=== PATIENT | female | born 1995 | race African-American/Black ===

== ENCOUNTER 2017-01-05 05:28 | Inpatient (IN) ==
[2017-01-05] MEDS ORDERED: CITRIC ACID/SODIUM CITRATE 30 ML UDCUP PO ONE (05:37)
[2017-01-05] MEDS ORDERED: FAMOTIDINE 20 MG/2 ML VIAL IV ONE (05:37)
[2017-01-05] MEDS ORDERED: cefOXitin 3,000 MG in SODIUM CHLORIDE 0.9% 100 ML IV ONE (05:40)
[2017-01-05 05:48] LABS: Basophils % 0.2 % (0.0-0.8); Eosinophils # 0.1 10*3/uL (0.0-0.87); Eosinophils % 1.4 % (0.00-10.9); Hematocrit 33.7 VOL% (35.7-47.0); Immature Granulocytes Absolute 0.17 #; Lymphocytes # 2.2 10*3/uL (1.4-4.0); Lymphocytes % 25.8 % (21.3-54.2); Mean Corpuscular HGB Conc 32.6 GM/DL (32-36); Mean Corpuscular Hemoglobin 25 PG (27-34); Mean Corpuscular Volume 77.1 FL (87-102); Mean Platelet Volume 10.3 FL (9.6-12.0); Monocytes # 0.6 10*3/uL (0.11-0.8); Monocytes % 7.1 % (1.7-12.7); Neutrophils # 5.3 10*3/uL (1.4-7.4); Neutrophils % 63.5 % (38.7-73.9); Platelet Count 207 T/CUMM (130-400); Red Blood Count 4.37 MC/CUMM (3.8-5.5); Red Cell Distribution Width 15.3 % (9.3-17.3); White Blood Count 8.4 T/CUMM (4-12)
[2017-01-05] MEDS ORDERED: LACTATED RINGERS 1,000 ML IV SCH (06:00)
[2017-01-05 06:10] LABS: Albumin 2.9 G/DL (3.4-5.0); Bilirubin,Total 0.6 MG/DL (0.2-1.0); Calcium 9.7 MG/DL (8.5-10.1); Osmolality,Calculated 271.7 MOS/KG (273-304); Potassium 3.8 MMOL/L (3.5-5.1); Total Protein 6.8 G/DL (6.4-8.3)
[2017-01-05] MEDS ORDERED: OXYTOCIN/LR 20 UNIT/1,000 ML BAG IV ONE ×2 (06:42→08:42)
--- NOTE | 2017-01-05 06:50 | OB/GYN History & Physical ---
History of Present Illness Chief complaint: Scheduled repeat section History of present illness: Ms. Lewis is a 21 year old female at 39 weeks who is here for scheduled repeat section. H/o section x 1 with general anesthesia secondary to spina bifida. Medical history is complicated by C HTN, Type 2 DM, asthma, and morbid obesity. She has been seen by MFM several times, had serial growth scans and twice weekly antetal testing which has been good. R/B/A to repeat section reviewed. Pt verbalized understanding and is willing to proceed. Home Medications Medication Instructions Recorded Confirmed Type Ferrous Sulfate 325 mg PO DAILY 06/22/16 01/01/17 History NIFEdipine [Nifedipine ER] 30 mg PO DAILY 06/22/16 01/01/17 History Insulin NPH [HumuLIN N] 12 unit SUBCUT AC SUPPER 11/27/16 01/01/17 History Insulin NPH [HumuLIN N] 42 units SUBCUT BIDAC 11/27/16 01/01/17 History Insulin Regular [HumuLIN R] 12 unit SUBCUT AC BREAKFAST 11/27/16 01/01/17 History Insulin Regular [HumuLIN R] 12 unit SUBCUT AC SUPPER 11/27/16 01/01/17 History Multivitamin () [ 1 tablet PO DAILY 12/22/16 01/01/17 History Vitamin] Allergies Allergy/AdvReac Type Severity Reaction Status Date / Time No Known Allergies Allergy Verified 01/01/17 11:32 Medical,Surgical,& Family Hx - Medical History Cardio: History of: Hypertension Neurology: No history of: Seizures Endocrine: History of: Diabetes Mellitus (IDDM) - Surgical History Reproductive Surgeries: Surgical HX of;: Section - Social History Smoking Status: Never smoker Frequency of Alcohol Use: None Type of Drug Use: None 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 - Constitutional Vitals: Vital Signs Temp Pulse Resp BP Pulse Ox 01/05/17 05:37 97.5 F L 89 18 168/86 100 General appearance: no acute distress, morbidly obese - Head Head exam: Present: normal inspection, normocephalic - Eye Eye exam: Present: EOMI Pupils: Present: WILL - Respiratory Respiratory exam: Present: clear to auscultation bilaterally - Cardiovascular Cardiovascular exam: Present: regular rate and rhythm - GI/Abdominal GI/Abdominal exam: Present: soft, other (FHTs reassuring.) Assessment and Plan (1) 39 weeks gestation of Status: Acute Current Visit: Yes (2) H/O: section Status: Acute Assessment and plan: Plan repeat section at 39 plus weeks Current Visit: Yes (3) Essential (primary) hypertension Status: Acute Current Visit: Yes (4) Type 2 diabetes mellitus Status: Acute Current Visit: Yes (5) Spina bifida Status: Acute Current Visit: Yes (6) Morbid obesity with BMI of 40.0-44.9, adult Status: Acute Current Visit: Yes Results - Labs CBC & BMP: 01/05/17 05:33 01/05/17 05:33
[2017-01-05] MEDS ORDERED: ONDANSETRON 4 MG/2 ML VIAL ONE (07:25)
[2017-01-05] MEDS ORDERED: PHENYLEPHRINE 1 MG/10 ML SYRINGE IV ONE (07:25)
[2017-01-05] MEDS: LACTATED RINGERS 1,000 ML IV SCH ×2 (07:26→18:53)
[2017-01-05 07:29] LABS: Apearance,Urine CLEAR (Clear); Bilirubin,Urine Negative (Negative); Blood, Urine Negative (Negative); Glucose,Urine (UA) Negative (Negative); Ketones,Urine Negative (Negative); Mucus,Urine Occasional /LPF (Occasional); Nitrite,Urine Negative (Negative); Protein,Urine Negative; RBC,Urine 1 /HPF (0-4); Squamous Epithelial Cell,Urine Occasional /HPF (0-10); Urine Color Straw (Yellow); Urine Specific Gravity 1.005 (1.001-1.035); Urine Urobilinogen < 2.0 EU/DL (0.2-1.0); WBC,Urine 1 /HPF (0-6)
[2017-01-05] MEDS ORDERED: ONDANSETRON 4 MG/2 ML VIAL IV PRN (08:42)
[2017-01-05] MEDS ORDERED: GLUCAGON 1 MG VIAL IM PRN (08:42)
[2017-01-05] MEDS ORDERED: DEXTROSE 50% 25 GM/50 ML VIAL IV PRN (08:42)
[2017-01-05] MEDS ORDERED: RHO(D) IMMUNE GLOBULIN 300 MCG SYRINGE IM ONE (08:42)
--- NOTE | 2017-01-05 08:54 | Operative Note ---
Date of procedure: 01/05/17 Pre-op diagnosis: 1. h/o C Section 2. C HTN 3. PreGest DM 4. Obesity 5. Spina Bifida Post-op diagnosis: same Procedure: REPEAT C SECTION Pt was taken to the OR where she was transferred from the cart to the OR table. Spinal anesthesia with Duramorph placed and adequate. Prepped and draped in standard fashion with flores catheter in her bladder. Previous incision right at pubic bone. Decision to make incision 2 FBs above pubic bone. Carried down to the underlying fascia. Fascia scored in the midline and incision extended to each side with Starkey scissors. Allison clamps placed superiorly and rectus dissected away. Similar procedure inferiorly. Peritoneum grapsed with Lori clamps x 2 and entered sharply with Metzenbaum scissors. Incision extended bluntly and sharply. Adithya retractor placed. Bladder taken down sharply. Uterus opened with knife and incision extended with bandage scissors. Membranes ruptured with Nicole. delivered in vertex position, cord clamped, cut and handed off to the awaiting NICU team. Placenta delivered and uterus cleared of clots and debris. Uterus closed in 2 layers with 0 vicryl suture. Fascia closed with 1.0 vicryl with 2 sutures from either corner to midline. Normal uterus, tubes and ovaries. Male infant weighing 7 lbs and 12 oz with APGARS of 8/9. Skin closed with Insorb amanda. Sponge, lap and needle counts correct x 2. Pt taken to recovery in stable condition. Anesthesia: regional Surgeon / Physician: Amarilis Camilo Career Agent: Padma Mora Estimated blood loss: other (600 cc) Specimens: none sent Condition: stable Disposition: PACU Results - Labs CBC & BMP: 01/05/17 05:33 01/05/17 05:33 Discharge Plan - Discharge Medications No Action Insulin Regular [HumuLIN R] 12 unit SUBCUT AC BREAKFAST NIFEdipine [Nifedipine ER] 30 mg PO DAILY Ferrous Sulfate 325 mg PO DAILY Insulin NPH [HumuLIN N] 42 units SUBCUT BIDAC Insulin Regular [HumuLIN R] 12 unit SUBCUT AC SUPPER Insulin NPH [HumuLIN N] 12 unit SUBCUT AC SUPPER Multivitamin () [ Vitamin] 1 tablet PO DAILY - Follow Up or Referral - Forms/Instructions
--- NOTE | 2017-01-05 09:03 | Anesthesia Post-Op ---
Anesthesia Post OP - Post Ansesthetic Evaluation Patient seen in post op: Yes Resp: within normal limits CV: within normal limits Mental: within normal limits Temp: within normal limits [id number]: within normal limits Nausea and Vomiting: within normal limits Pain: within normal limits
[2017-01-05] MEDS ORDERED: ePHEDrine 50 MG/ML AMP ONE (09:06)
[2017-01-05] MEDS ORDERED: MORPHINE 10 MG/10 ML VIAL ONE (09:06)
[2017-01-05] MEDS: IBUPROFEN 800 MG TABLET PO SCH ×2 (13:00→19:01)
[2017-01-05] MEDS: INSULIN REGULAR 100 UNIT/ML SUBCUT SCH ×3 (16:11→20:59)
[2017-01-05] MEDS: DOCUSATE SODIUM 100 MG CAPSULE PO SCH ×2 (17:47→21:01)
[2017-01-05] MEDS: MULTIVITAMIN (PRENATAL) TABLET PO SCH (17:47)
[2017-01-05] MEDS: metFORMIN 500 MG TABLET PO SCH (17:50)
[2017-01-05 17:56] LABS: Basophils % 0.2 % (0.0-0.8); Eosinophils % 0.2 % (0.00-10.9); Hematocrit 32.4 VOL% (35.7-47.0); Hemoglobin 10.5 GM/DL (12.0-16.0); Immature Granulocytes % 1.5 %; Immature Granulocytes Absolute 0.17 #; Lymphocytes # 1.6 10*3/uL (1.4-4.0); Lymphocytes % 14.3 % (21.3-54.2); Mean Corpuscular HGB Conc 32.4 GM/DL (32-36); Mean Corpuscular Hemoglobin 25 PG (27-34); Mean Corpuscular Volume 76.1 FL (87-102); Mean Platelet Volume 9.8 FL (9.6-12.0); Monocytes # 0.5 10*3/uL (0.11-0.8); Monocytes % 4.5 % (1.7-12.7); Neutrophils # 8.8 10*3/uL (1.4-7.4); Neutrophils % 79.3 % (38.7-73.9); Platelet Count 174 T/CUMM (130-400); Red Blood Count 4.26 MC/CUMM (3.8-5.5); Red Cell Distribution Width 15.2 % (9.3-17.3); White Blood Count 11.1 T/CUMM (4-12)
[2017-01-06] MEDS: IBUPROFEN 800 MG TABLET PO SCH ×3 (03:12→17:18)
[2017-01-06 06:19] LABS: Basophils % 0.2 % (0.0-0.8); Eosinophils # 0.1 10*3/uL (0.0-0.87); Eosinophils % 0.6 % (0.00-10.9); Hemoglobin 9.6 GM/DL (12.0-16.0); Immature Granulocytes % 1.4 %; Immature Granulocytes Absolute 0.14 #; Lymphocytes # 1.5 10*3/uL (1.4-4.0); Lymphocytes % 14.6 % (21.3-54.2); Mean Corpuscular HGB Conc 33.1 GM/DL (32-36); Mean Corpuscular Hemoglobin 25 PG (27-34); Mean Corpuscular Volume 75.5 FL (87-102); Mean Platelet Volume 10.4 FL (9.6-12.0); Monocytes # 0.7 10*3/uL (0.11-0.8); Monocytes % 6.6 % (1.7-12.7); Neutrophils # 7.9 10*3/uL (1.4-7.4); Neutrophils % 76.6 % (38.7-73.9); Platelet Count 169 T/CUMM (130-400); Red Blood Count 3.84 MC/CUMM (3.8-5.5); Red Cell Distribution Width 15.5 % (9.3-17.3); White Blood Count 10.2 T/CUMM (4-12)
[2017-01-06 06:39] LABS: Elliptocytes Few; Hypochromasia 1+; Platelet Estimate Normal
[2017-01-06] MEDS: INSULIN REGULAR 100 UNIT/ML SUBCUT SCH ×3 (07:25→21:00)
[2017-01-06] MEDS: metFORMIN 500 MG TABLET PO SCH ×2 (08:05→17:18)
[2017-01-06] MEDS: MULTIVITAMIN (PRENATAL) TABLET PO SCH (08:05)
[2017-01-06] MEDS: DOCUSATE SODIUM 100 MG CAPSULE PO SCH ×2 (08:05→21:02)
--- NOTE | 2017-01-06 08:22 | OB/GYN Progress Note ---
Assessment and Plan (1) 39 weeks gestation of Status: Acute Current Visit: Yes (2) H/O: section Status: Acute Assessment and plan: Plan repeat section at 39 plus weeks Current Visit: Yes (3) Essential (primary) hypertension Status: Acute Current Visit: Yes (4) Type 2 diabetes mellitus Status: Acute Current Visit: Yes (5) Spina bifida Status: Acute Current Visit: Yes (6) Morbid obesity with BMI of 40.0-44.9, adult Status: Acute Current Visit: Yes (7) Status post repeat low transverse section Status: Acute Assessment and plan: POD#1 s/p repeat section Doing well Encourage ambulation Routine care Current Visit: Yes 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: Subj Interval history: Pt feels sore this morning Exam 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
[2017-01-06] MEDS: MAGNESIUM HYDROXIDE SUSP 30 ML UDCUP PO PRN (21:00)
[2017-01-06] MEDS: SIMETHICONE CHEW 80 MG TABLET PO PRN (21:01)
[2017-01-07] MEDS: IBUPROFEN 800 MG TABLET PO SCH ×2 (00:34→08:19)
[2017-01-07] MEDS: INSULIN REGULAR 100 UNIT/ML SUBCUT SCH ×2 (07:20→13:41)
[2017-01-07 07:31] VITALS: BP 139/75
[2017-01-07] MEDS: MULTIVITAMIN (PRENATAL) TABLET PO SCH (08:18)
[2017-01-07] MEDS: DOCUSATE SODIUM 100 MG CAPSULE PO SCH (08:18)
[2017-01-07] MEDS: MAGNESIUM HYDROXIDE SUSP 30 ML UDCUP PO PRN (08:19)
[2017-01-07] MEDS: SIMETHICONE CHEW 80 MG TABLET PO PRN (08:19)
[2017-01-07] MEDS: metFORMIN 500 MG TABLET PO SCH (08:19)
--- NOTE | 2017-01-07 08:35 | Discharge Summary ---
Hospital Course - Hospital Course Hospital Course: Routine PP course without complication. Feels well and is ready to go home this afternoon. Diagnosis - Discharge Diagnosis (1) 39 weeks gestation of Status: Acute (2) H/O: section Status: Acute (3) Essential (primary) hypertension Status: Acute (4) Type 2 diabetes mellitus Status: Acute (5) Spina bifida Status: Acute (6) Morbid obesity with BMI of 40.0-44.9, adult Status: Acute (7) Status post repeat low transverse section Status: Acute Discharge Plan - Discharge Data Disposition: Disch To Home/Self Care Condition at Discharge: Stable Discharge Diet: diabetic diet, low salt diet Activity: other (Routine Post op) Hygiene: may shower Weight Bearing at Discharge: full weight bearing Driving: not for (2 weeks) Contact your physician if you experience:: fever over 101, Difficulty voiding, Redness or swelling - Discharge Medications New Docusate Sodium Cap [Colace Cap] 100 mg PO BID #30 capsule HYDROcodone/ACETAMIN 5-325 [Mckenzie 5-325] 2 tablet PO Q6H PRN #20 tablet PRN Reason: Pain Severe (8-10) metFORMIN [Glucophage] 500 mg PO BID W/MEALS #60 tablet NIFEdipine XL TAB [Procardia Xl] 30 mg PO DAILY #30 tablet Ibuprofen Tab [Motrin Tab] 800 mg PO Q8H #30 tablet No Action Insulin Regular [HumuLIN R] 12 unit SUBCUT AC BREAKFAST NIFEdipine [Nifedipine ER] 30 mg PO DAILY Ferrous Sulfate 325 mg PO DAILY Insulin NPH [HumuLIN N] 42 units SUBCUT BIDAC Insulin Regular [HumuLIN R] 12 unit SUBCUT AC SUPPER Insulin NPH [HumuLIN N] 12 unit SUBCUT AC SUPPER Multivitamin () [ Vitamin] 1 tablet PO DAILY - Follow Up or Referral - Forms/Instructions Exam - Constitutional Vitals: Period Temp Pulse Resp BP Sys/Jimenez Pulse Ox Last 24 Hr 97.4 F-99 F 97-110 18-20 130-155/55-93 98-98 General appearance: no acute distress, morbidly obese - Head Head exam: Present: normal inspection, normocephalic - Eye Eye exam: Present: EOMI Pupils: Present: WILL - GI/Abdominal GI/Abdominal exam: Present: soft, other (Incision intact) Discharge Results Labs on day of discharge: Labs from last 24 hours 01/07/17 01/06/17 01/06/17 07:15 21:00 16:06 POC Glucose 76 100 92 01/06/17 11:50 POC Glucose 99 DS: Provider Date of admission: 01/05/17 05:28 Primary care physician: Elvia Davis MD Attending physician on admission: Amarilis Camilo MD Consults: 01/05/17 08:42 Consult to Dimmer Board Operator [CONS] Routine Consult Dimmer Board Operator: Breast Feeding Discharging clinician: Amarilis Camilo MD
[2017-01-07] MEDS ORDERED: DIPH/TET/ACEL PERT BOOSTER VACCINE 0.5 ML VIAL IM ONE (09:00)
== END 2017-01-07 14:05 | disposition home or self-care (01) | DRG 540 ==
LOC: N.LD 05:28 → N.OB 16:40
PROVIDERS: ADMIT Obstetrics & Gynecology; ATTEND Obstetrics & Gynecology
PROC: LDCSECT (ICD-10-PCS; 2017-01-05 07:30)

== ENCOUNTER 2018-05-31 06:48 | Inpatient (IN) ==
[2018-05-31 06:42] LABS: Basophils % 0.3 % (0.0-0.8); Eosinophils # 0.1 10*3/uL (0.0-0.87); Eosinophils % 1.4 % (0.00-10.9); Hematocrit 31.6 VOL% (35.7-47.0); Hemoglobin 9.8 GM/DL (12.0-16.0); Immature Granulocytes % 1.3 %; Lymphocytes # 2.2 10*3/uL (1.4-4.0); Mean Corpuscular Hemoglobin 24 PG (27-34); Mean Corpuscular Volume 78.6 FL (87-102); Monocytes # 0.6 10*3/uL (0.11-0.8); Monocytes % 7.4 % (1.7-12.7); Neutrophils % 62.6 % (38.7-73.9); Platelet Count 237 T/CUMM (130-400); Red Blood Count 4.02 MC/CUMM (3.8-5.5); Red Cell Distribution Width 14.5 % (9.3-17.3)
[~2018-05-31 06:48] MED LIST: CITRIC ACID/SODIUM CITRATE 30 ML UDCUP PO ONE; FAMOTIDINE 20 MG/2 ML VIAL IV ONE; INFLUENZA VIRUS VACCINE 0.5 ML SYRINGE IM ONE; OXYTOCIN/LR 20 UNIT/1,000 ML BAG IV ONE; ceFAZolin 3,000 MG in SYRINGE 1 EACH IV ONE
[2018-05-31 06:56] LABS: Alanine Aminotransferase 18 U/L (13-56); Albumin 2.4 G/DL (3.4-5.0); Alkaline Phosphatase 162 U/L (45-117); Aspartate Amino Transferase 18 U/L (0-37); Bilirubin,Total < 0.39 MG/DL (0.2-1.0); Blood Urea Nitrogen 6 MG/DL (7-18); Calcium 8.8 MG/DL (8.5-10.1); Glucose 81 MG/DL (74-106); Osmolality,Calculated 275.4 MOS/KG (273-304); Potassium 3.8 MMOL/L (3.5-5.1); Sodium 140 MMOL/L (136-145); Total Protein 6.8 G/DL (6.4-8.3)
[2018-05-31 07:16] LABS: INR 0.9; PT Patient Result 9.5 SECS; Partial Thromboplastin Time 33.2 SECS (0-40)
[2018-05-31] MEDS ORDERED: ceFAZolin 3,000 MG in SYRINGE 1 EACH IV ONE (07:30)
[2018-05-31] MEDS: LACTATED RINGERS 1,000 ML IV SCH ×2 (07:30→21:18)
[2018-05-31] MEDS ORDERED: MORPHINE 10 MG/10 ML VIAL ONE (11:25)
[2018-05-31] MEDS ORDERED: PHENYLEPHRINE 1 MG/10 ML SYRINGE IV ONE (11:25)
[2018-05-31] MEDS ORDERED: fentaNYL 100 MCG/2 ML VIAL ONE (11:25)
[2018-05-31] MEDS ORDERED: BUPIVACAINE SPINAL 0.75% 2 ML AMP SPINAL ONE (11:26)
[2018-05-31] MEDS ORDERED: ONDANSETRON 4 MG/2 ML VIAL ONE ×2 (11:26→15:19)
[2018-05-31 11:29] LABS: Apearance,Urine CLEAR (Clear); Bilirubin,Urine Negative (Negative); Blood, Urine Negative (Negative); Glucose,Urine (UA) Negative (Negative); Ketones,Urine 20 mg/dL (Negative); Mucus,Urine Occasional /LPF (Occasional); Nitrite,Urine Negative (Negative); Protein,Urine Negative; RBC,Urine <1 /HPF (0-4); Urine Color Straw (Yellow); Urine Specific Gravity 1.012 (1.001-1.035); Urine Urobilinogen < 2.0 EU/DL (0.2-1.0); WBC,Urine <1 /HPF (0-6)
[2018-05-31] MEDS ORDERED: GLUCAGON 1 MG VIAL IM PRN (15:20)
[2018-05-31] MEDS ORDERED: SIMETHICONE CHEW 80 MG TABLET PO PRN (15:20)
[2018-05-31] MEDS ORDERED: MAGNESIUM HYDROXIDE SUSP 30 ML UDCUP PO PRN (15:20)
[2018-05-31] MEDS ORDERED: ONDANSETRON 4 MG/2 ML VIAL IV PRN ×2 (15:20→15:21)
[2018-05-31] MEDS ORDERED: RHO(D) IMMUNE GLOBULIN 300 MCG SYRINGE IM ONE (15:20)
[2018-05-31] MEDS ORDERED: DEXTROSE 50% 25 GM/50 ML VIAL IV PRN (15:20)
[2018-05-31] MEDS ORDERED: ceFAZolin 1,000 MG in SYRINGE 1 EACH IV SCH (16:00)
[2018-05-31] MEDS ORDERED: PROMETHAZINE 25 MG/1 ML VIAL IM PRN (18:32)
[2018-05-31] MEDS: KETOROLAC 30 MG/1 ML VIAL IV SCH (19:05)
[2018-05-31] MEDS: ceFAZolin 1,000 MG in SYRINGE 1 EACH IV SCH (21:02)
[2018-05-31] MEDS: INSULIN REGULAR 100 UNIT/ML SUBCUT SCH (21:17)
[2018-05-31] MEDS: diphenhydrAMINE 50 MG/1 ML VIAL IV PRN (22:52)
[2018-06-01] MEDS: KETOROLAC 30 MG/1 ML VIAL IV SCH ×2 (03:34→10:19)
[2018-06-01] MEDS ORDERED: ceFAZolin 1,000 MG in SYRINGE 1 EACH IV SCH (05:30)
[2018-06-01] MEDS: diphenhydrAMINE 50 MG/1 ML VIAL IV PRN (05:30)
[2018-06-01] MEDS: ceFAZolin 1,000 MG in SYRINGE 1 EACH IV SCH (05:40)
[2018-06-01 05:47] LABS: Basophils % 0.3 % (0.0-0.8); Eosinophils # 0.1 10*3/uL (0.0-0.87); Eosinophils % 0.6 % (0.00-10.9); Hematocrit 32.9 VOL% (35.7-47.0); Hemoglobin 10.1 GM/DL (12.0-16.0); Immature Granulocytes % 1.1 %; Lymphocytes # 1.4 10*3/uL (1.4-4.0); Mean Corpuscular HGB Conc 30.7 GM/DL (32-36); Mean Corpuscular Hemoglobin 24 PG (27-34); Mean Corpuscular Volume 78.3 FL (87-102); Mean Platelet Volume 11.1 FL (9.6-12.0); Monocytes # 0.7 10*3/uL (0.11-0.8); Monocytes % 6.9 % (1.7-12.7); Neutrophils # 7.2 10*3/uL (1.4-7.4); Neutrophils % 76.1 % (38.7-73.9); Platelet Count 241 T/CUMM (130-400); Red Cell Distribution Width 14.6 % (9.3-17.3); White Blood Count 9.4 T/CUMM (4-12)
[2018-06-01] MEDS: INSULIN REGULAR 100 UNIT/ML SUBCUT SCH ×4 (07:00→22:21)
[2018-06-01] MEDS: metFORMIN 500 MG TABLET PO SCH ×2 (09:40→17:39)
[2018-06-01] MEDS: DOCUSATE SODIUM 100 MG CAPSULE PO SCH ×2 (09:41→22:11)
[2018-06-01] MEDS: IBUPROFEN 800 MG TABLET PO SCH ×2 (09:42→17:40)
[2018-06-01] MEDS: MULTIVITAMIN (PRENATAL) TABLET PO SCH (09:44)
[2018-06-01] MEDS ORDERED: KETOROLAC 30 MG/1 ML VIAL ONE (10:00)
[2018-06-02] MEDS: IBUPROFEN 800 MG TABLET PO SCH ×2 (02:04→08:33)
[2018-06-02 07:23] VITALS: BP 122/74
[2018-06-02] MEDS: INSULIN REGULAR 100 UNIT/ML SUBCUT SCH (07:34)
[2018-06-02] MEDS: metFORMIN 500 MG TABLET PO SCH (08:32)
[2018-06-02] MEDS: DOCUSATE SODIUM 100 MG CAPSULE PO SCH (08:35)
[2018-06-02] MEDS: MULTIVITAMIN (PRENATAL) TABLET PO SCH (08:35)
[2018-06-02] MEDS ORDERED: DIPH/TET/ACEL PERT BOOSTER VACCINE 0.5 ML VIAL IM ONE (12:57)
[2018-06-02] MEDS ORDERED: INFLUENZA VIRUS VACCINE 0.5 ML SYRINGE IM ONE (12:57)
== END 2018-06-02 14:10 | disposition home or self-care (01) | DRG 540 ==
LOC: N.LDOUT 06:48 → N.LD 06:48 → OBSVTOIN 06:53 → N.OB 14:49
PROVIDERS: ADMIT Obstetrics & Gynecology; ATTEND Obstetrics & Gynecology